=== PATIENT | female | born 1960 | race Caucasian/White ===

== ENCOUNTER 2019-05-25 00:02 | Observation (INO) | payer BC ==
[~2019-05-25] VITALS: Ht 157.5 cm; Wt 56.2 kg
[~2019-05-25 00:02] MED LIST: CLAR250T PO; CODE118S2 PO
[2019-05-25 00:16] VITALS: BP_SYST 142
--- NOTE | 2019-05-25 00:17 | NUR ---
Placed in room 2 . Placed on manager cardiac, blood pressure machine and pulse oximeter. To gown for exam. Side rails up. Report given to Rashawn SALEH by Olman SALEH.
--- NOTE | 2019-05-25 00:20 | NUR ---
Pt brought into ER by for chest pain. Pt states she was woken up from her sleep with substernal chest pain, that radiates to the right and left chest. Pt said she felt dizziness, mild SOB, and Nausea. Pt states pain 6/10, but was worse earlier. Pt denies fever, chills, jaw pain. Pt has Hx of CAD, diagnosed recently, and was put on aspirin and lipitor. No other significant Hx. Will continue to monitor.
--- NOTE | 2019-05-25 00:24 | NUR ---
Dr. Pierce at bedside examining Pt
[2019-05-25] MEDS ORDERED: ASPIRIN 81 MG TAB.CHEW PO ONE ×2 (00:30→12:45)
[2019-05-25] MEDS ORDERED: NITROGLYCERIN 0.4 MG TAB.SUBL SL ONE (00:45)
[2019-05-25 00:57] LABS: BASOPHILS # (AUTO) 0.2 K/uL (0.0-0.2); BASOPHILS % (AUTO) 4.8 % (0.0-2.0); EOSINOPHILS # (AUTO) 0.2 K/uL (0.0-0.4); EOSINOPHILS % (AUTO) 4.5 % (0.0-4.0); HEMATOCRIT 38.7 % (36-48); HEMOGLOBIN 13.1 g/dL (12.0-16.0); LYMPHOCYTES % (AUTO) 42.2 % (20.5-51.5); MEAN CORPUSCULAR HEMOGLOBIN 31 pg (27-31); MEAN CORPUSCULAR HGB CONC 34 % (32-36); MEAN CORPUSCULAR VOLUME 90 fL (79.0-98.0); MONOCYTES # (AUTO) 0.3 K/uL (0.0-1.0); MONOCYTES % (AUTO) 6.1 % (1.7-9.3); NEUTROPHILS % (AUTO) 42.4 % (40.0-70.0); PLATELET COUNT (AUTO) 257 K/uL (130-430); RED BLOOD CELL COUNT(AUTO) 4.28 MIL/uL (4.2-6.2); RED CELL DISTRIBUTION WIDTH 13.1 % (9.0-15.0); WHITE BLOOD COUNT (AUTO) 4.7 K/uL (4.8-10.8)
[2019-05-25 01:22] LABS: CALCIUM 9.5 mg/dL (8.4-11.0); CREATININE 0.79 mg/dL (0.55-1.30); POTASSIUM 4.1 mmol/L (3.5-5.1)
[2019-05-25 01:28] LABS: TOTAL BILIRUBIN 0.2 mg/dL (0.0-1.0)
[2019-05-25 01:44] LABS: BILIRUBIN,URINE NEGATIVE (NEGATIVE); BLOOD, URINE NEGATIVE (NEGATIVE); CLARITY/URINE CLEAR (CLEAR); COLOR,URINE YELLOW (YELLOW); GLUCOSE,URINE NEGATIVE (NEGATIVE); KETONES,URINE NEGATIVE (NEGATIVE); LEUKOCYTE ESTERASE ,URINE NEGATIVE (NEGATIVE); NITRITE, URINE NEGATIVE (NEGATIVE); PROTEIN URINE NEGATIVE (NEGATIVE); UROBILINOGEN,URINE 0.2 (0.2-1.0)
[2019-05-25] MEDS ORDERED: LIP40 PO (01:49)
[2019-05-25] MEDS ORDERED: TERB250T50 PO (01:49)
[2019-05-25] MEDS ORDERED: ASPI-1155 PO (01:49)
--- NOTE | 2019-05-25 01:50 | NUR ---
Medication reconciliation completed with information provided by pt. Any prior medication reconciliation on file was reviewed and corrected.
--- NOTE | 2019-05-25 01:52 | NUR ---
Pt c/o of chest pain, Nitro given. 3 total times, nitro given. Pt rates chest pain 6/10 upon assessment.
[2019-05-25] MEDS ORDERED: ACETAMINOPHEN 500 MG TABLET PO ONE (02:15)
--- NOTE | 2019-05-25 02:18 | NUR ---
Patient will be admitted to care of Dr. Kaplan. Admitted to Telemetry unit. Will go to room 135. Belongings list completed. Medication reconciliation Summary report printed. Report will be given at bedside.
--- NOTE | 2019-05-25 02:43 | NUR ---
ADMISSION NOTE Received patient from ER via [facility], received report from Rashawn SALEH. Patient admitted with diagnosis of Chest pain. Patient oriented to hospital routine, call light, toileting and safety-patient verbalized understanding.
[2019-05-25 02:53] VITALS: BP_SYST 124
--- NOTE | 2019-05-25 04:42 | NUR ---
ROUNDS Pt is resting in bed with both eyes closed, with visible chest rise and fall with non-labored breathing noted. at bedside. No complains of pain at this time. No signs of acute distress noted. Safety precautions in place and call light with pt. Will continue to monitor.
--- NOTE | 2019-05-25 06:23 | NUR ---
CLOSING NOTES Pt is resting in bed with both eyes closed, with visible chest rise and fall with non-labored breathing noted. Pt is easily arousable. No complains of pain or discomfort at this time. No signs of acute distress or SOB noted. All needs attended throughout the shift. Safety precautions maintained with 2 side rails up, wheels locked, and bed in lowest level. Call light with pt. Will endorse to day shift nurse.
--- NOTE | 2019-05-25 06:48 | NUR ---
CONSULTATION PAGED REASON FOR CONSULTATION:CHEST PAIN WAS CONSULT CALLED?Y PERSON WHO WAS NOTIFIED:[employer] [id number] [place] CONSULTING PHYSICIAN:NIKHIL EVANS SOCIAL MEDIA INTERN SPECIALTY:CARDIO SOCIAL MEDIA INTERN PHONE NUMBER:[phone] ORDERING PHYSICIAN:GUILLE MONZON
[2019-05-25] MEDS ORDERED: HYDROcodone/ACETAMIN 5-325 MG TAB (NORCO/ VICODIN) PO PRN (07:15)
[2019-05-25] MEDS ORDERED: HYDROcodone/ACETAMIN 10-325 MG TAB PO PRN (07:15)
[2019-05-25] MEDS ORDERED: ALBUTEROL SULFATE 0.083% 2.5 MG/3 ML VIAL.NEB INH PRN (07:15)
[2019-05-25 08:00] VITALS: BP_SYST 121
--- NOTE | 2019-05-25 08:00 | NUR ---
initial notes rec patient awake alert with hob elevated. ivl intact on the r wrist. no infiltration noted. resp easy and unlabored. no sob noted. bed to the lowest position and side rails up and locked. call light within reached and knows when to call for assistance. denies chest pain at this time. will continue to monitor patient.
[2019-05-25 08:47] LABS: CHOLESTEROL 129 mg/dL (<200); HDL CHOLESTEROL 50 mg/dL (>55); LDL CHOLESTEROL 69 mg/dL (<100); TRIGLYCERIDES 46 mg/dL (30-150)
[2019-05-25] MEDS ORDERED: ATORVASTATIN 20 MG TABLET PO SCH (09:00)
[2019-05-25] MEDS ORDERED: ASPIRIN 81 MG TAB.CHEW PO SCH (09:00)
--- NOTE | 2019-05-25 10:00 | NUR ---
rounds dr forrest at bedside and examining patient.
[2019-05-25 11:04] VITALS: BP_SYST 121
--- NOTE | 2019-05-25 12:00 | NUR ---
rounds pt ate lunch at bedside and robert well. call light within reached. turned reposition self in bed.
[2019-05-25 13:33] VITALS: BP_SYST 121
--- NOTE | 2019-05-25 14:20 | NUR ---
closing notes pt was discharged after a call from dr castañeda. stable and needs attended. ivl and id band was removed,no osb noted. refused a wheelchair and wanted to walk and was escorted out. stated will have a stress test on jun 04 and scan on the Jun. accompanied by .
[2019-05-26] MEDS ORDERED: ASPIRIN 81 MG TAB.CHEW PO SCH (09:00)
== END 2019-05-25 14:22 | disposition home or self-care (01) ==
LOC: SED 00:02 → STU 01:56 → INTOOBSV 01:56 → STU 02:17
PROVIDERS: ADMIT Internal Medicine Hospice and Palliative Medicine; ATTEND Internal Medicine Hospice and Palliative Medicine
DX: R07.89 Other chest pain (principal); E78.5 Hyperlipidemia, unspecified; I25.10 Atherosclerotic heart disease of native coronary artery without angina pectoris
CPT/HCPCS: 36415; 71045; 80053; 80061; 81003; 82550; 83880; 84484; 85025; 85379; 93005; 93306; 99285; G0378